=== PATIENT | male | born 1995 | race Caucasian/White ===

== ENCOUNTER 2016-10-09 08:13 | Emergency (ER) | payer OTHER ==
--- NOTE | 2016-10-09 08:35 | UC ---
Throat Pain/Nasal Nghia HPI - HPI Summary HPI Summary: sore throat x 3 days + fever, chills, + body aches no runny nose , no cough - History of Current Complaint Chief Complaint: UCRespiratory Stated Complaint: SORE THROAT,FEVER Time Seen by Provider: 10/09/16 08:16 Hx Obtained From: Patient Onset/Duration: Sudden Onset, Lasting Days - 3, Still Present Severity: Moderate Cough: None Associated Signs & Symptoms: Positive: Fever. Negative: Dysphagia, FB Sensation , Drooling, Wheezing, Hoarseness, Sinus Discomfort, Nasal Discharge, Vomiting, Rash - Allergies/Home Medications Allergies/Adverse Reactions: Allergies Allergy/AdvReac Type Severity Reaction Status Date / Time No Known Allergies Allergy Verified 10/09/16 08:24 PMH/Surg Hx/FS Hx/Imm Hx Previously Healthy: Yes - Surgical History Surgical History: None - Family History Known Family History: Positive: Unknown Negative: Diabetes - Social History Alcohol Use: Rare Substance Use Type: None Smoking Status (MU): Never Smoked Tobacco - Immunization History Most Recent Influenza Vaccination: Not the Season Review of Systems Constitutional: Fever, Chills, Fatigue Skin: Negative Eyes: Negative ENT: Sore Throat Respiratory: Negative Cardiovascular: Negative Gastrointestinal: Negative Musculoskeletal: Myalgia All Other Systems Reviewed And Are Negative: Yes Physical Exam Triage Information Reviewed: Yes Appearance: Well-Appearing, No Pain Distress, Well-Nourished Vital Signs: Initial Vital Signs Temp 98.8 F 10/09/16 08:17 Pulse 74 10/09/16 08:17 Resp 20 10/09/16 08:17 BP 116/70 10/09/16 08:17 Pulse Ox 100 10/09/16 08:17 Vital Signs Reviewed: Yes Eyes: Positive: Conjunctiva Clear ENT: Positive: Normal ENT inspection, Hearing grossly normal, Pharyngeal erythema, TMs normal. Negative: Nasal congestion, Nasal drainage Neck exam: Normal Neck: Positive: Supple, Nontender, No Lymphadenopathy Respiratory Exam: Normal Respiratory: Positive: Chest non-tender, Lungs clear, Normal breath sounds, No respiratory distress Cardiovascular: Positive: RRR, No Murmur, Pulses Normal Skin Exam: Normal Throat Pain/Nasal Course/Dx - Differential Dx/Diagnosis Provider Diagnoses: strep pharyngitis Discharge - Discharge Plan Condition: Stable Disposition: HOME Prescriptions: Amoxicillin (*) 875 mg PO BID #20 tab Patient Education Materials: Strep Throat (ED) Referrals: Non Staff,Doctor [Primary Care Provider] - If Needed
[2016-10-09 08:38] VITALS: BP 116/70
== END 2016-10-09 08:53 | disposition home or self-care (01) ==
LOC: UCCORT 08:13
DX: J02.0 Streptococcal pharyngitis (principal)
CPT/HCPCS: 87651; 99212; G0463

== ENCOUNTER 2016-12-11 08:51 | Emergency (ER) | payer OTHER ==
[2016-12-11 09:49] VITALS: BP 110/63
[2016-12-11] MEDS ORDERED: Cephalexin CAP* 500 MG PO ONE (11:03)
[2016-12-11] MEDS ORDERED: Ibuprofen TAB* 600 MG PO ONE (11:07)
[2016-12-11] MEDS ORDERED: Ibuprofen TAB* 600 MG ONE (11:09)
--- NOTE | 2016-12-11 11:11 | UC ---
Throat Pain/Nasal Nghia HPI - HPI Summary HPI Summary: 20 yo male with sore throat and fever x 12 hours no n/v/d had strep 10/03 - History of Current Complaint Chief Complaint: UCGeneralIllness Stated Complaint: SORE THROAT FEVER ACHY Time Seen by Provider: 12/11/16 10:58 Hx Obtained From: Patient Severity: Moderate Pain Intensity: 4 Pain Scale Used: 0-10 Numeric Associated Signs & Symptoms: Positive: Fever - Epiglottits Risk Factors Epiglottis Risk Factors: Negative - Allergies/Home Medications Allergies/Adverse Reactions: Allergies Allergy/AdvReac Type Severity Reaction Status Date / Time No Known Allergies Allergy Verified 12/11/16 09:47 Home Medications: Home Medications Acetaminophen [Acetaminophen Extra Stren] 1,000 mg PO Q6H PRN 12/11/16 [History Confirmed 12/11/16] Snnridyfysqjjbzf-[id number]-GV [Night Time Cold & Flu Rel 15-6.25-325 mg] 2 cap PO ONCE PRN 12/11/16 [History Confirmed 12/11/16] Dextromethorphan-Phenylephrine [Daytime Cold & Flu Relief 10-5-325 mg] 2 cap PO ONCE PRN 12/11/16 [History Confirmed 12/11/16] PMH/Surg Hx/FS Hx/Imm Hx Previously Healthy: Yes - Surgical History Surgical History: None - Family History Known Family History: Positive: Hypertension Negative: Diabetes - Social History Alcohol Use: Weekly Alcohol Amount: 3XPER WK Substance Use Type: None Smoking Status (MU): Never Smoked Tobacco - Immunization History Most Recent Influenza Vaccination: Not the Season Review of Systems Constitutional: Fever Skin: Negative Eyes: Negative ENT: Sore Throat Respiratory: Negative Cardiovascular: Negative Gastrointestinal: Negative Genitourinary: Negative Motor: Negative Neurovascular: Negative Musculoskeletal: Negative Neurological: Negative Psychological: Negative All Other Systems Reviewed And Are Negative: Yes Physical Exam Triage Information Reviewed: Yes Appearance: Well-Appearing, No Pain Distress, Well-Nourished Vital Signs: Initial Vital Signs Temp 101 F 12/11/16 09:40 Pulse 116 12/11/16 09:40 Resp 20 12/11/16 09:40 BP 110/63 12/11/16 09:40 Pulse Ox 97 12/11/16 09:40 Vital Signs Reviewed: Yes Eyes: Positive: Conjunctiva Clear ENT: Positive: Hearing grossly normal, Pharyngeal erythema, TMs normal, Tonsillar swelling, Tonsillar exudate. Negative: Trismus, Muffled/hoarse voice Neck: Positive: Supple, Nontender, Enlarged Nodes @ - ant cervica; Respiratory: Positive: Lungs clear, Normal breath sounds, No respiratory distress Cardiovascular: Positive: RRR, No Murmur Musculoskeletal: Positive: ROM Intact, No Edema Neurological: Positive: Alert Psychological Exam: Normal Skin Exam: Normal Throat Pain/Nasal Course/Dx - Differential Dx/Diagnosis Provider Diagnoses: acute tonsillitis Discharge - Discharge Plan Condition: Stable Disposition: HOME Prescriptions: Cephalexin CAP* [Keflex CAP*] 500 mg PO BID #19 cap Patient Education Materials: Tonsillitis (ED) Referrals: Non Staff,Doctor [Primary Care Provider] - Additional Instructions: I suspect strep recheck in 3-4 days if not completely better recheck sooner for worsening symptoms
== END 2016-12-11 11:11 | disposition home or self-care (01) ==
LOC: UCCORT 08:51
DX: J03.90 Acute tonsillitis, unspecified (principal)
CPT/HCPCS: 99212; A9270-GY; G0463